=== PATIENT | female | born 1980 | race Hispanic/Latino ===

== ENCOUNTER 2018-07-25 09:56 | Emergency (ER) | payer OTHER ==
--- NOTE | 2018-07-25 10:33 | ED PDOC ---
Lower Extremity Pain/Injury Time Seen by Provider: 07/25/18 10:10 Chief Complaint (Nursing): Lower Extremity Problem/Injury Chief Complaint (Provider): Lower Extremity Problem/Injury History Per: Patient History/Exam Limitations: no limitations Onset/Duration Of Symptoms: Other ([employer]) Additional Complaint(s): 38 years old female presents to ER for evaluation of left seth pain started after running 14 miles today. Patient reports she is training for [employer] and noticed previously pain in the left lateral leg in knee that resolved with rest. She denies any fall, twisting or swelling. PMD: non provided Past Medical History Reviewed: Historical Data, Nursing Documentation, Vital Signs - Medical History PMH: No Chronic Diseases - Surgical History Surgical History: No Surg Hx - Family History Family History: States: Unknown Family Hx - Home Medications Home Medications: Ambulatory Orders Medication Instructions Recorded Cyclobenzaprine [Cyclobenzaprine 10 mg PO DAILY #30 tab 07/25/18 HCl] Naproxen [Naprosyn] 500 mg PO BID #60 tablet 07/25/18 - Allergies Allergies/Adverse Reactions: Allergies Allergy/AdvReac Type Severity Reaction Status Date / Time No Known Allergies Allergy Verified 07/25/18 10:20 Review of Systems ROS Statement: Except As Marked, All Systems Reviewed And Found Negative Musculoskeletal: Positive for: Leg Pain (Left seth). Negative for: Other (fall, twisting or swelling of left leg) Physical Exam - Reviewed Nursing Documentation Reviewed: Yes Vital Signs Reviewed: Yes - Physical Exam Appears: Positive for: Non-toxic, No Acute Distress Head Exam: Positive for: ATRAUMATIC, NORMOCEPHALIC Skin: Negative for: Rash (or ecchymosis of lower extremity) Cardiovascular/Chest: Positive for: Regular Rate, Rhythm. Negative for: Murmur Respiratory: Positive for: Normal Breath Sounds. Negative for: Respiratory Distress Pulses-Post. Tibialis (L): 2+ Pulses-Post. Tibialis (R): 2+ Extremity: Positive for: Normal ROM (of left knee), Tenderness (on palpation of left tibia and left sacroiliac joint). Negative for: Swelling, Other (Signs of trauma) Neurologic/Psych: Positive for: Alert, Oriented (x3) Medical Decision Making Medical Decision Making: Time: 1020 --IT band syndrome and seth splints due to excessive running --Patient advised to avoid high impact exercise for the next one week --Naproxen for pain --Muscle relaxer --Advised patient to stretch and warm soaks exercise tolerated for pain Scribe Attestation: Documented by Adelaide Leal, acting as a scribe for Rosana Jimenez MD. Provider Scribe Attestation: All medical record entries made by the Scribe were at my direction and p ersonally dictated by me. I have reviewed the chart and agree that the record accurately reflects my personal performance of the history, physical exam, medical decision making, and the department course for this patient. I have also personally directed, reviewed, and agree with the discharge instructions and disposition. Disposition - Clinical Impression Clinical Impression: Seth splint of left lower extremity, IT band syndrome - Disposition Disposition Time: 10:20 Condition: STABLE Additional Instructions: Stretch and warm soaks. Limit running/high impact exercise until symptoms resolve. Follow up with primary medical doctor. Prescriptions: Cyclobenzaprine [Cyclobenzaprine HCl] 10 mg PO DAILY #30 tab Naproxen [Naprosyn] 500 mg PO BID #60 tablet Instructions: Iliotibial Band Syndrome (DC) Forms: Dyn (Kiswahili) Print Language: MACEDONIAN
[2018-07-25 11:42] VITALS: BP 100/70; PULSE 70; RESP 20; TEMP 98; O2SAT 98
== END 2018-07-25 11:00 | disposition home or self-care (01) ==
LOC: H.ER 09:56
DX: M76.30 Iliotibial band syndrome, unspecified leg (principal); Y93.02 Activity, running